=== PATIENT | female | born 1995 | race African-American/Black ===

== ENCOUNTER 2016-12-02 22:04 | Emergency (ER) | payer OTHER ==
[~2016-12-02] VITALS: Ht 165.1 cm; Wt 50.0 kg
[~2016-12-02 22:04] MED LIST: PEPCID; REGLAN
[2016-12-02] MEDS ORDERED: KETOROLAC 30MG/ML VIAL IV STA (23:43)
[2016-12-02] MEDS ORDERED: ONDANSETRON HCL 4MG/2ML VIAL IV STA (23:43)
[2016-12-02] MEDS ORDERED: SODIUM CHLORIDE 0.9% 1,000 ML IV ONE (23:43)
[2016-12-03 00:08] VITALS: BP 130/85
[2016-12-03 00:27] LABS: HEMATOCRIT. 34.9 % (36.0-48.0); HEMOGLOBIN. 11.2 g/dL (12.0-16.0); MEAN CORPUSCULAR HEMOGLOBIN 22.5 pg (28.0-32.0); MEAN CORPUSCULAR VOLUME 70.4 fL (81.0-99.0); MEAN PLATELET VOLUME 8.7 fl (7.4-10.4); PLATELET 289 x1000/uL (130-400); RED BLOOD CELL COUNT 4.95 mill/uL (4.2-5.4); RED CELL DISTRIBUTION WIDTH 22.5 % (11.6-14.6)
[2016-12-03 00:35] LABS: INR 1.2; PROTHROMBIN TIME 12.7 sec
[2016-12-03 00:44] LABS: CARBON DIOXIDE 20 mEq/L (21-32); CHLORIDE 109 mEq/L (98-107)
[2016-12-03 00:49] LABS: HCG SCREEN NEGATIVE
[2016-12-03 00:58] LABS: CLARITY URINE CLEAR (CLEAR); COLOR URINE YELLOW (YELLOW); GLUCOSE URINE TRACE (NEGATIVE); KETONES URINE 4+ (NEGATIVE); LEUKOCYTE ESTERASE URINE 1+ (NEGATIVE); NITRITE URINE NEGATIVE (NEGATIVE); OCCULT BLOOD URINE 2+ (NEGATIVE); PROTEIN URINE 1+ (NEGATIVE); SPECIFIC GRAVITY URINE 1.032 (1.005-1.030)
[2016-12-03 01:21] LABS: PLATELET ESTIMATE NORMAL
== END 2016-12-03 00:47 | disposition left against medical advice (07) ==
LOC: ER 22:37
DX: R10.13 Epigastric pain (principal); R11.2 Nausea with vomiting, unspecified; F12.10 Cannabis abuse, uncomplicated; F17.200 Nicotine dependence, unspecified, uncomplicated
CPT/HCPCS: 36415; 80053; 81001; 81025; 83690; 84703; 85025; 85610; 96361; 96374; 96375; 99284; J1885; J2405; J7030; Z7610